=== PATIENT | female | born 1950 | race Caucasian/White ===

== ENCOUNTER 2017-10-04 03:44 | Outpatient (CLI) | payer MEDICARE, BC ==
[~2017-10-04 03:44] MED LIST: ATOR10TA PO
== END 2017-10-04 23:59 | disposition home or self-care (01) ==
LOC: DIABETIC 03:44
PROVIDERS: ATTEND Family Medicine
DX: E11.9 Type 2 diabetes mellitus without complications (principal); Z86.19 Personal history of other infectious and parasitic diseases
CPT/HCPCS: G0108

== ENCOUNTER 2018-04-04 02:50 | Outpatient (CLI) | payer MEDICARE, BC | END 2018-04-04 23:59 | disposition home or self-care (01) | LOC: DIABETIC 02:50 | PROVIDERS: ATTEND Family Medicine | DX: E11.9 Type 2 diabetes mellitus without complications (principal) | CPT/HCPCS: G0108 ==

== ENCOUNTER 2018-10-16 12:50 | Outpatient (CLI) | payer MEDICARE, BC | END 2018-10-16 23:59 | disposition home or self-care (01) | LOC: VAS 12:50 | PROVIDERS: ATTEND Family Medicine | DX: M71.21 Synovial cyst of popliteal space [Baker], right knee (principal); I87.2 Venous insufficiency (chronic) (peripheral); E11.9 Type 2 diabetes mellitus without complications; Z90.710 Acquired absence of both cervix and uterus | CPT/HCPCS: 93971 ==

== ENCOUNTER 2022-10-04 14:20 | Outpatient (CLI) | payer MEDICARE | END 2022-10-04 23:59 | disposition home or self-care (01) | LOC: RAD 14:20 | PROVIDERS: ATTEND Internal Medicine Cardiovascular Disease | DX: I08.8 Other rheumatic multiple valve diseases (principal); I10 Essential (primary) hypertension; E11.69 Type 2 diabetes mellitus with other specified complication | CPT/HCPCS: 93306 ==

== ENCOUNTER 2023-04-25 18:58 | Inpatient (IN) | payer MEDICARE ==
[~2023-04-25] VITALS: Ht 170.2 cm; Wt 83.8 kg
--- NOTE | 2023-04-25 22:41 | NUR ---
VAS AT BS
[2023-04-25] MEDS ORDERED: rivaroxaban 15mg tablet PO STA (23:26)
[2023-04-25] MEDS ORDERED: RIVA15TA PO ×2 (23:35)
[2023-04-25] MEDS ORDERED: iohexol 350MG/ML 100ml bottle IV ONE (23:37)
[2023-04-25 23:39] LABS: BASOPHILS # (AUTO) 0.2 X10'3 (0-0.2); EOSINOPHILS # (AUTO) 0.2 X10'3 (0-0.9); HEMATOCRIT 32.3 % (35.0-45.0); HEMOGLOBIN 10.9 g/dl (12.0-16.0); LYMPHOCYTES # (AUTO) 1.6 X10'3 (1.1-4.8); MEAN CORPUSCULAR HEMOGLOBIN 31.9 PG (27.0-31.0); MEAN CORPUSCULAR HGB CONC 33.7 g/dL (33.0-36.5); MEAN CORPUSCULAR VOLUME 94.5 FL (78-98); MEAN PLATELET VOLUME 7.5 FL (7.4-10.4); MONOCYTES % (AUTO) 12.1 % (2-12); NEUTROPHILS % (AUTO) 62.9 % (42-75); PLATELET COUNT 295 X10'3 (140-440); RED BLOOD COUNT 3.42 X10'6 (4.20-5.60); RED CELL DISTRIBUTION WIDTH 12.8 % (11.5-14.5)
[2023-04-25 23:53] LABS: ALANINE AMINOTRANSFERASE 31 U/L (12-78); ALBUMIN/GLOBULIN RATIO 0.9 (1.1-1.5); ALKALINE PHOSPHATASE 53 IU/L (46-116); ANION GAP 9 (8-16); ASPARTATE AMINO TRANSFERASE 23 U/L (10-37); BILIRUBIN,TOTAL 0.4 MG/DL (0.1-1.0); BLOOD UREA NITROGEN 30 MG/DL (7-18); BUN/CREATININE RATIO 24.2 (10.0-20.0); CALCIUM 8.5 MG/DL (8.5-10.1); CHLORIDE 108 MMOL/L (99-107); CREATININE 1.24 MG/DL (0.40-0.90); GLUCOSE 110 MG/DL (70-104); POTASSIUM 4.2 MMOL/L (3.5-5.1); SODIUM 144 MMOL/L (135-145); TOTAL CARBON DIOXIDE 26.7 MMOL/L (24-32); TOTAL PROTEIN 6.3 G/DL (6.4-8.2); eCRCL 39 ML/MIN; eGFR 42 ML/MIN
[2023-04-26] VITALS (9 sets, daily range): BP systolic 120–155; BP diastolic 52–82; PULSE 56–72; RESP 14–22; TEMP 96.9–98; O2SAT 62–97
[2023-04-26 00:01] LABS: PRO BRAIN NATRIURETIC PEPTIDE 1839 PG/ML (0-125)
--- NOTE | 2023-04-26 00:05 | NUR ---
Call to pharmacy regarding medication, stated they were bringing med down.
[2023-04-26] MEDS ORDERED: mag hydrox/Alum hydrox/simeth 30ml oral suspension PO PRN (02:10)
[2023-04-26] MEDS ORDERED: ondansetron 4mg rapidly disintigrating tab PO PRN (02:10)
[2023-04-26] MEDS ORDERED: diphenhydrAMINE 50 mg/ml inj IV PRN (02:10)
[2023-04-26] MEDS ORDERED: acetaminophen 325mg tablet PO PRN ×2 (02:10)
[2023-04-26] MEDS ORDERED: bisacodyl 10mg suppository rectal RC PRN (02:10)
[2023-04-26] MEDS ORDERED: ondansetron/PF 4mg/2ml inj IV PRN (02:10)
[2023-04-26] MEDS ORDERED: diphenhydrAMINE 25mg capsule PO PRN (02:10)
[2023-04-26] MEDS ORDERED: magnesium hydroxide 30ml (MOM) UD suspension PO PRN (02:10)
[2023-04-26] MEDS ORDERED: normal saline 1000ml 1,000 ML IV SCH (02:10)
[2023-04-26] MEDS ORDERED: acetaminophen 650mg rectal suppository RC PRN (02:10)
[2023-04-26] MEDS ORDERED: morphine 2 MG/ML inj. syringe IV PRN (02:10)
[2023-04-26 02:51] LABS: CREATINE KINASE 78 U/L (26-192); LIPASE 142 U/L (73-393); MAGNESIUM 2.2 MG/DL (1.5-2.4); PHOSPHORUS 4.3 MG/DL (2.3-4.5)
--- NOTE | 2023-04-26 03:20 | NUR ---
Patient in room PCU 3027. I have received report from Lilibeth ED RN and had the opportunity to ask questions and assume patient care.
[2023-04-26] MEDS: HYDROcodone/acetaminophen 5mg/325mg tablet PO PRN ×2 (04:13→12:53)
[2023-04-26] MEDS ORDERED: ATOR10TA70 PO (05:20)
[2023-04-26] MEDS ORDERED: LISI5TAB22 PO (05:20)
[2023-04-26] MEDS ORDERED: RIVA15TA PO (05:20)
--- NOTE | 2023-04-26 06:20 | NUR ---
Problems reprioritized. Patient report given, questions answered & plan of care reviewed with Darinel LEDESMA.
[2023-04-26 07:05] LABS: APTT 39 SECONDS (22-32); INR 1.2 INR; PROTHROMBIN TIME 12.6 SECONDS (9.0-12.0)
[2023-04-26] MEDS ORDERED: rivaroxaban 15mg tablet PO SCH (07:30)
[2023-04-26] MEDS: pantoprazole 40mg Tablet.DR PO SCH (08:00)
[2023-04-26] MEDS: docusate sod 100mg capsule PO SCH ×2 (08:00→20:02)
[2023-04-26] MEDS ORDERED: heparin 10,000 units/1 ML INJ IV PRN (10:20)
[2023-04-26] MEDS ORDERED: heparin 10,000 units/1 ML INJ IV ONE (10:20)
[2023-04-26] MEDS: heparin 25,000 UNIT/250ml bag 250 ML IV PRN (10:48)
--- NOTE | 2023-04-26 16:25 | NUR ---
DVT PTT >139. Heparin turned off.
--- NOTE | 2023-04-26 18:45 | NUR ---
Patient in room PCU 3027. I have received report from Bryce silva and had the opportunity to ask questions and assume patient care.
--- NOTE | 2023-04-26 19:10 | NUR ---
lAB JUST CALLED WITH A CRITICAL PTT OF >139. wILL FOLLOW PROTOCOL AND KEEP HEPARIN OFF FOR ANOTHER 2 HRS.
[2023-04-26] MEDS: lisinopril 5mg tablet PO SCH (20:07)
[2023-04-26] MEDS ORDERED: temazepam 15mg capsule PO PRN (21:00)
[2023-04-27] VITALS (12 sets, daily range): BP systolic 100–143; BP diastolic 41–82; PULSE 53–89; RESP 12–22; TEMP 97.4–99.1; O2SAT 90–97
[2023-04-27 03:39] LABS: BASOPHILS # (AUTO) 0.1 X10'3 (0-0.2); EOSINOPHILS # (AUTO) 0.2 X10'3 (0-0.9); MONOCYTES # (AUTO) 0.6 X10'3 (0-0.9); NEUTROPHILS # (AUTO) 4.1 X10'3 (1.8-7.7); NEUTROPHILS % (AUTO) 63.7 % (42-75); RED CELL DISTRIBUTION WIDTH 12.7 % (11.5-14.5)
[2023-04-27 03:40] LABS: BASOPHILS % (AUTO) 1.9 % (0-1); EOSINOPHILS % (AUTO) 3.5 % (0-6); HEMATOCRIT 33.6 % (35.0-45.0); HEMOGLOBIN 11.4 g/dl (12.0-16.0); LYMPHOCYTES # (AUTO) 1.4 X10'3 (1.1-4.8); LYMPHOCYTES % (AUTO) 21.5 % (21-51); MEAN CORPUSCULAR HEMOGLOBIN 31.8 PG (27.0-31.0); MEAN CORPUSCULAR HGB CONC 33.7 g/dL (33.0-36.5); MEAN CORPUSCULAR VOLUME 94.2 FL (78-98); MEAN PLATELET VOLUME 7.9 FL (7.4-10.4); MONOCYTES % (AUTO) 9.4 % (2-12); PLATELET COUNT 295 X10'3 (140-440); RED BLOOD COUNT 3.57 X10'6 (4.20-5.60); WHITE BLOOD COUNT 6.4 X10'3 (4.5-11.0)
[2023-04-27 03:51] LABS: ALANINE AMINOTRANSFERASE 25 U/L (12-78); ALBUMIN 2.8 G/DL (3.4-5.0); ALKALINE PHOSPHATASE 53 IU/L (46-116); ANION GAP 10 (8-16); ASPARTATE AMINO TRANSFERASE 20 U/L (10-37); BILIRUBIN,TOTAL 0.6 MG/DL (0.1-1.0); BLOOD UREA NITROGEN 16 MG/DL (7-18); BUN/CREATININE RATIO 16.7 (10.0-20.0); CALCIUM 8.4 MG/DL (8.5-10.1); CHLORIDE 106 MMOL/L (99-107); CHOL/HDL RATIO 2.6 (0.00-4.99); CHOLESTEROL 150 MG/DL (0-200); CREATININE 0.96 MG/DL (0.40-0.90); GLUCOSE 94 MG/DL (70-104); HDL CHOLESTEROL 57 MG/DL (35-60); LDL CHOLESTEROL 71 MG/DL (50-100); SODIUM 142 MMOL/L (135-145); TOTAL CARBON DIOXIDE 25.7 MMOL/L (24-32); TOTAL PROTEIN 5.7 G/DL (6.4-8.2); TRIGLYCERIDES 74 MG/DL (20-135); eCRCL 50 ML/MIN; eGFR 57 ML/MIN
--- NOTE | 2023-04-27 04:01 | NUR ---
Patients Ptt came back at 54 within therapeutic range. No change in rate. New PTT lab entered for 909.
--- NOTE | 2023-04-27 07:00 | NUR ---
Problems reprioritized. Patient report given, questions answered & plan of care reviewed with Katelynn LEDESMA..
[2023-04-27] MEDS: heparin 25,000 UNIT/250ml bag 250 ML IV PRN (09:09)
[2023-04-27] MEDS: atorvastatin 20mg tablet PO SCH (09:13)
[2023-04-27] MEDS: pantoprazole 40mg Tablet.DR PO SCH (09:13)
[2023-04-27] MEDS: docusate sod 100mg capsule PO SCH ×2 (09:13→20:00)
[2023-04-27] MEDS: HYDROcodone/acetaminophen 5mg/325mg tablet PO PRN (15:06)
--- NOTE | 2023-04-27 17:17 | NUR ---
Contacted Dr Casillas regarding advancing patients diet: Received orders for a HH diet patient also requesting Fiber, Received orders for Fiber. Contacted Pharmacy ordered Fiber.
--- NOTE | 2023-04-27 18:42 | NUR ---
Problems reprioritized. Patient report given, questions answered & plan of care reviewed with Ani LEDESMA.
[2023-04-27] MEDS: psyllium seed 5.8 gm packet (sugar-free) PO SCH (20:48)
[2023-04-27] MEDS: lisinopril 5mg tablet PO SCH (20:53)
[2023-04-28] MEDS: HYDROcodone/acetaminophen 5mg/325mg tablet PO PRN (01:39)
[2023-04-28 03:23] LABS: BASOPHILS % (AUTO) 0.4 % (0-1); EOSINOPHILS # (AUTO) 0.2 X10'3 (0-0.9); HEMATOCRIT 36.1 % (35.0-45.0); HEMOGLOBIN 12.1 g/dl (12.0-16.0); LYMPHOCYTES # (AUTO) 1.6 X10'3 (1.1-4.8); LYMPHOCYTES % (AUTO) 20.1 % (21-51); MEAN CORPUSCULAR HEMOGLOBIN 31.3 PG (27.0-31.0); MEAN CORPUSCULAR HGB CONC 33.4 g/dL (33.0-36.5); MEAN CORPUSCULAR VOLUME 93.6 FL (78-98); MEAN PLATELET VOLUME 7.8 FL (7.4-10.4); MONOCYTES # (AUTO) 0.8 X10'3 (0-0.9); MONOCYTES % (AUTO) 9.7 % (2-12); NEUTROPHILS # (AUTO) 5.3 X10'3 (1.8-7.7); NEUTROPHILS % (AUTO) 66.8 % (42-75); PLATELET COUNT 340 X10'3 (140-440); RED BLOOD COUNT 3.86 X10'6 (4.20-5.60); RED CELL DISTRIBUTION WIDTH 12.8 % (11.5-14.5); WHITE BLOOD COUNT 7.9 X10'3 (4.5-11.0)
[2023-04-28 03:43] LABS: ALANINE AMINOTRANSFERASE 23 U/L (12-78); ALBUMIN 2.9 G/DL (3.4-5.0); ALBUMIN/GLOBULIN RATIO 0.9 (1.1-1.5); ALKALINE PHOSPHATASE 51 IU/L (46-116); ANION GAP 8 (8-16); ASPARTATE AMINO TRANSFERASE 21 U/L (10-37); BILIRUBIN,TOTAL 0.5 MG/DL (0.1-1.0); BLOOD UREA NITROGEN 16 MG/DL (7-18); BUN/CREATININE RATIO 13.3 (10.0-20.0); CALCIUM 8.9 MG/DL (8.5-10.1); CHLORIDE 108 MMOL/L (99-107); GLUCOSE 113 MG/DL (70-104); POTASSIUM 4.2 MMOL/L (3.5-5.1); SODIUM 141 MMOL/L (135-145); TOTAL CARBON DIOXIDE 25.5 MMOL/L (24-32); TOTAL PROTEIN 6.1 G/DL (6.4-8.2); eCRCL 40 ML/MIN; eGFR 44 ML/MIN
[2023-04-28 06:00] VITALS: BP 119/52; PULSE 54; RESP 19; TEMP 97.7; O2SAT 100
--- NOTE | 2023-04-28 06:26 | NUR ---
Problems reprioritized. Patient report given, questions answered & plan of care reviewed with Katelynn LEDESMA. Addendum: 04/28/23 at 0626 by Ani Varner RN Amended: Links added.
[2023-04-28] MEDS: heparin 25,000 UNIT/250ml bag 250 ML IV PRN (06:40)
[2023-04-28] MEDS: docusate sod 100mg capsule PO SCH ×2 (08:35→20:53)
[2023-04-28] MEDS: pantoprazole 40mg Tablet.DR PO SCH (08:35)
[2023-04-28] MEDS: atorvastatin 20mg tablet PO SCH (08:36)
[2023-04-28 08:50] VITALS: RESP 16
[2023-04-28 10:00] VITALS: BP 100/44; PULSE 57; RESP 21; TEMP 98.5; O2SAT 96
--- NOTE | 2023-04-28 11:34 | NUR ---
Per Chaka the pharmacist Stop heparin gtt per orders then ok to give the Eliquis 1 hours later.
--- NOTE | 2023-04-28 11:35 | NUR ---
Heparin gtt stopped per MD orders
[2023-04-28] MEDS: apixaban 5mg tablet PO SCH ×2 (13:04→20:54)
[2023-04-28 15:00] VITALS: BP_SYST 105; BP_SYST 99; BP_DIAS 50; BP_DIAS 68; PULSE 81; PULSE 87; RESP 18; RESP 20; TEMP 97.6; TEMP 98.7; O2SAT 94; O2SAT 96
--- NOTE | 2023-04-28 15:21 | NUR ---
PAGER ID: [phone] MESSAGE: Katelynn ALBA [id number] Re: [place] [id number] feels like she has a bladder infection, patient is incontinent can we straight cath for sample?
[2023-04-28 16:43] LABS: BILIRUBIN,URINE NEGATIVE (Neg); CLARITY,URINE CLOUDY (Clear); COLOR,URINE YELLOW (Yellow); GLUCOSE, URINE NEGATIVE (Neg); KETONES,URINE NEGATIVE (Neg); LEUKOCYTE ESTERASE ,URINE LARGE (Neg); NITRITES, URINE NEGATIVE (Neg); OCCULT BLOOD,URINE SMALL (Neg); PH,URINE 8.5 (4.8-8.0); PROTEIN,URINE 30 mg/dl (Neg); UROBILINOGEN,URINE 0.2 E.U/dL (0.2-1.0)
[2023-04-28 16:44] LABS: UA COLLECTION TYPE STRAIGHT CATH
[2023-04-28 16:55] LABS: BACTERIA,URINE 4+ /HPF (Neg); MUCUS STRANDS NONE SEEN /LPF (Neg); SQUAMOUS EPITHELIAL CELL,UR NONE SEEN /LPF (FEW); WBC,URINE 50-100 /HPF (0-4)
[2023-04-28 16:56] LABS: TRIPLE PHOSPHATE CRYST 1+ /HPF (NEGATIVE)
[2023-04-28 16:58] LABS: URINE AMPHETAMINE SCREEN NEGATIVE (Neg); URINE BARBITUATE SCREEN NEGATIVE (Neg); URINE BENZODIAZEPINES SCREEN NEGATIVE (Neg); URINE CANNABINOID SCREEN NEGATIVE (Neg); URINE COCAINE SCREEN NEGATIVE (Neg); URINE METHADONE SCREEN NEGATIVE (Neg); URINE OPIATE SCREEN POSITIVE (Neg); URINE PHENCYCLIDINE SCREEN NEGATIVE (Neg)
--- NOTE | 2023-04-28 17:46 | NUR ---
PAGER ID: [phone] MESSAGE: Katelynn ALBA [id number] Re: Arabella [id number] U/A done shows 4+ UTI sent for cultures no antibiotics on patient Thank YOu
[2023-04-28] MEDS ORDERED: CefTRIAXone/D5W-Rocephin 1gm 50 ML IV ONE (17:50)
[2023-04-28 18:00] VITALS: BP 138/49; PULSE 62; RESP 20; TEMP 97.8; O2SAT 94
--- NOTE | 2023-04-28 18:16 | NUR ---
Problems reprioritized. Patient report given, questions answered & plan of care reviewed with Ani LEDESMA and Bryan GUTIERREZ.
--- NOTE | 2023-04-28 18:45 | NUR ---
Patient in room PCU 3027. I have received report from Katelynn LEDESMA and had the opportunity to ask questions and assume patient care.
[2023-04-28] MEDS: lisinopril 5mg tablet PO SCH (20:53)
[2023-04-28] MEDS: psyllium seed 5.8 gm packet (sugar-free) PO SCH (20:54)
[2023-04-28 22:00] VITALS: BP 128/75; PULSE 68; RESP 18; TEMP 97.4; O2SAT 95
[2023-04-29] VITALS (8 sets, daily range): BP systolic 96–150; BP diastolic 47–60; PULSE 54–71; RESP 13–19; TEMP 97.8–99; O2SAT 19–96
--- NOTE | 2023-04-29 05:08 | NUR ---
MATT documentation: I have reviewed and agree with all interventions, assessments performed and documented by Bryan GUTIERREZ. Addendum: 04/29/23 at 0509 by Ani Varner RN Amended: Links added.
--- NOTE | 2023-04-29 05:48 | NUR ---
MATT documentation: I have reviewed and agree with all interventions, assessments performed and documented by Bryan GUTIERREZ. Addendum: 04/29/23 at 0549 by Ani Varner RN Amended: Links added.
--- NOTE | 2023-04-29 06:23 | NUR ---
Problems reprioritized. Patient report given, questions answered & plan of care reviewed with Star RN.
--- NOTE | 2023-04-29 06:38 | NUR ---
Patient in room U 3018. I have received report from Ani and had the opportunity to ask questions and assume patient care. Addendum: 04/29/23 at 0639 by Star Ohara RN Amended: Links added.
[2023-04-29 07:29] LABS: BASOPHILS # (AUTO) 0.1 X10'3 (0-0.2); BASOPHILS % (AUTO) 0.9 % (0-1); EOSINOPHILS # (AUTO) 0.2 X10'3 (0-0.9); EOSINOPHILS % (AUTO) 2.9 % (0-6); HEMATOCRIT 34.8 % (35.0-45.0); HEMOGLOBIN 11.6 g/dl (12.0-16.0); LYMPHOCYTES # (AUTO) 0.9 X10'3 (1.1-4.8); LYMPHOCYTES % (AUTO) 11.7 % (21-51); MEAN CORPUSCULAR HEMOGLOBIN 31.3 PG (27.0-31.0); MEAN CORPUSCULAR HGB CONC 33.3 g/dL (33.0-36.5); MEAN CORPUSCULAR VOLUME 93.9 FL (78-98); MEAN PLATELET VOLUME 8.1 FL (7.4-10.4); MONOCYTES # (AUTO) 0.7 X10'3 (0-0.9); MONOCYTES % (AUTO) 8.7 % (2-12); NEUTROPHILS # (AUTO) 5.9 X10'3 (1.8-7.7); NEUTROPHILS % (AUTO) 75.8 % (42-75); PLATELET COUNT 332 X10'3 (140-440); RED BLOOD COUNT 3.71 X10'6 (4.20-5.60); RED CELL DISTRIBUTION WIDTH 12.6 % (11.5-14.5); WHITE BLOOD COUNT 7.8 X10'3 (4.5-11.0)
[2023-04-29] MEDS: docusate sod 100mg capsule PO SCH ×2 (07:33→20:23)
[2023-04-29] MEDS: pantoprazole 40mg Tablet.DR PO SCH (07:33)
[2023-04-29] MEDS: atorvastatin 20mg tablet PO SCH (07:33)
[2023-04-29] MEDS: CefTRIAXone/D5W-Rocephin 1gm 50 ML IV SCH (07:34)
[2023-04-29] MEDS: apixaban 5mg tablet PO SCH ×2 (07:34→20:23)
[2023-04-29 07:46] LABS: ALANINE AMINOTRANSFERASE 22 U/L (12-78); ALBUMIN 2.8 G/DL (3.4-5.0); ALBUMIN/GLOBULIN RATIO 0.9 (1.1-1.5); ALKALINE PHOSPHATASE 56 IU/L (46-116); ANION GAP 6 (8-16); ASPARTATE AMINO TRANSFERASE 25 U/L (10-37); BILIRUBIN,TOTAL 0.3 MG/DL (0.1-1.0); BLOOD UREA NITROGEN 18 MG/DL (7-18); BUN/CREATININE RATIO 14.8 (10.0-20.0); CALCIUM 8.6 MG/DL (8.5-10.1); CHLORIDE 108 MMOL/L (99-107); CREATININE 1.22 MG/DL (0.40-0.90); GLUCOSE 123 MG/DL (70-104); POTASSIUM 3.9 MMOL/L (3.5-5.1); SODIUM 140 MMOL/L (135-145); TOTAL CARBON DIOXIDE 26.1 MMOL/L (24-32); TOTAL PROTEIN 5.9 G/DL (6.4-8.2); eCRCL 39 ML/MIN; eGFR 43 ML/MIN
--- NOTE | 2023-04-29 18:18 | NUR ---
Problems reprioritized. Patient report given, questions answered & plan of care reviewed with Candi. Addendum: 04/29/23 at 1818 by Star Ohara RN Amended: Links added.
[2023-04-29] MEDS: lisinopril 5mg tablet PO SCH (20:23)
[2023-04-29] MEDS: psyllium seed 5.8 gm packet (sugar-free) PO SCH (21:01)
[2023-04-30 02:00] VITALS: BP 108/52; PULSE 72; RESP 18; TEMP 98.2; O2SAT 95
--- NOTE | 2023-04-30 03:02 | NUR ---
[employer] documentation: I have reviewed and agree with assessment performed and documented by BLAINE Manning
--- NOTE | 2023-04-30 06:15 | NUR ---
Patient in room U 3016. I have received report from Candi and had the opportunity to ask questions and assume patient care. Addendum: 04/30/23 at 0615 by Star Ohara RN Amended: Links added.
[2023-04-30 07:12] LABS: BASOPHILS # (AUTO) 0.1 X10'3 (0-0.2); EOSINOPHILS # (AUTO) 0.2 X10'3 (0-0.9); EOSINOPHILS % (AUTO) 3.2 % (0-6); HEMATOCRIT 33.7 % (35.0-45.0); HEMOGLOBIN 11.1 g/dl (12.0-16.0); LYMPHOCYTES # (AUTO) 1.3 X10'3 (1.1-4.8); LYMPHOCYTES % (AUTO) 17.7 % (21-51); MEAN CORPUSCULAR HEMOGLOBIN 31.2 PG (27.0-31.0); MEAN CORPUSCULAR VOLUME 94.4 FL (78-98); MEAN PLATELET VOLUME 7.7 FL (7.4-10.4); MONOCYTES # (AUTO) 0.7 X10'3 (0-0.9); MONOCYTES % (AUTO) 9.9 % (2-12); NEUTROPHILS % (AUTO) 68.2 % (42-75); PLATELET COUNT 346 X10'3 (140-440); RED BLOOD COUNT 3.57 X10'6 (4.20-5.60); WHITE BLOOD COUNT 7.3 X10'3 (4.5-11.0)
[2023-04-30 07:21] VITALS: BP 122/58; PULSE 66; RESP 19; TEMP 98.4; O2SAT 95
[2023-04-30 07:34] LABS: ALANINE AMINOTRANSFERASE 34 U/L (12-78); ALBUMIN 2.7 G/DL (3.4-5.0); ALBUMIN/GLOBULIN RATIO 0.9 (1.1-1.5); ALKALINE PHOSPHATASE 48 IU/L (46-116); ANION GAP 7 (8-16); ASPARTATE AMINO TRANSFERASE 33 U/L (10-37); BILIRUBIN,TOTAL 0.2 MG/DL (0.1-1.0); BLOOD UREA NITROGEN 21 MG/DL (7-18); BUN/CREATININE RATIO 16.8 (10.0-20.0); CALCIUM 8.5 MG/DL (8.5-10.1); CHLORIDE 107 MMOL/L (99-107); CREATININE 1.25 MG/DL (0.40-0.90); GLUCOSE 111 MG/DL (70-104); POTASSIUM 4.2 MMOL/L (3.5-5.1); SODIUM 142 MMOL/L (135-145); TOTAL CARBON DIOXIDE 28.2 MMOL/L (24-32); TOTAL PROTEIN 5.6 G/DL (6.4-8.2); eCRCL 38 ML/MIN; eGFR 42 ML/MIN
[2023-04-30] MEDS: apixaban 5mg tablet PO SCH (07:34)
[2023-04-30] MEDS: pantoprazole 40mg Tablet.DR PO SCH (07:34)
[2023-04-30] MEDS: docusate sod 100mg capsule PO SCH (07:34)
[2023-04-30] MEDS: atorvastatin 20mg tablet PO SCH (07:34)
[2023-04-30] MEDS: CefTRIAXone/D5W-Rocephin 1gm 50 ML IV SCH (07:35)
[2023-04-30 08:39] VITALS: RESP 19; O2SAT 95
[2023-04-30 12:22] VITALS: BP 129/62; PULSE 64; RESP 17; TEMP 98.5; O2SAT 95
--- NOTE | 2023-04-30 13:07 | NUR ---
IV/tele off, report called to Carlyle Saleh
== END 2023-04-30 13:09 | DRG 299 ==
LOC: ER 19:07 → ED HOLD 04-26 02:13 → EDBEDREQ 04-26 03:05 → PCU 3S 04-26 03:45
PROVIDERS: ADMIT Family Medicine; ATTEND Family Medicine
PROC: B32T1ZZ Computerized Tomography (CT Scan) of Left Pulmonary Artery using Low Osmolar Contrast (ICD-10-PCS; principal; 2023-04-26)
PROC: B3201ZZ Computerized Tomography (CT Scan) of Thoracic Aorta using Low Osmolar Contrast (ICD-10-PCS; 2023-04-26)
PROC: B32S1ZZ Computerized Tomography (CT Scan) of Right Pulmonary Artery using Low Osmolar Contrast (ICD-10-PCS; 2023-04-26)
DX: I82.432 Acute embolism and thrombosis of left popliteal vein (principal); I26.92 Saddle embolus of pulmonary artery without acute cor pulmonale; N17.9 Acute kidney failure, unspecified; I13.0 Hypertensive heart and chronic kidney disease with heart failure and stage 1 through stage 4 chronic kidney disease, or unspecified chronic kidney disease; N39.0 Urinary tract infection, site not specified; I82.412 Acute embolism and thrombosis of left femoral vein; I82.512 Chronic embolism and thrombosis of left femoral vein; I82.532 Chronic embolism and thrombosis of left popliteal vein; E86.1 Hypovolemia; F03.A0 Unspecified dementia, mild, without behavioral disturbance, psychotic disturbance, mood disturbance, and anxiety; Z60.2 Problems related to living alone; F10.21 Alcohol dependence, in remission; B96.89 Other specified bacterial agents as the cause of diseases classified elsewhere; R26.9 Unspecified abnormalities of gait and mobility; D64.9 Anemia, unspecified; E11.22 Type 2 diabetes mellitus with diabetic chronic kidney disease; N18.30 Chronic kidney disease, stage 3 unspecified; E78.5 Hyperlipidemia, unspecified; I50.9 Heart failure, unspecified; K70.9 Alcoholic liver disease, unspecified; K80.20 Calculus of gallbladder without cholecystitis without obstruction; Z79.01 Long term (current) use of anticoagulants; Z79.899 Other long term (current) drug therapy; Z87.891 Personal history of nicotine dependence; Z86.73 Personal history of transient ischemic attack (TIA), and cerebral infarction without residual deficits
CPT/HCPCS: 36415; 71275; 80053; 80061; 80305; 81001; 82550; 83036; 83690; 83735; 83880; 84100; 84484; 85025; 85379; 85610; 85730; 87077; 87088; 87186; 93005; 93306; 93971; 97161; 97530; 97535; 99285; A6213; A6250; A6446; A6449; C1758; G0378; J0696; J1644; J7030; Q9967

== ENCOUNTER 2023-06-27 08:36 | Outpatient (CLI) | payer MEDICARE ==
[2023-06-27] VITALS (10 sets, daily range): BP systolic 104–134; BP diastolic 46–67; PULSE 58–85; RESP 12–16; O2SAT 96–100
[~2023-06-27] VITALS: Ht 152.4 cm; Wt 87.1 kg
[~2023-06-27 08:36] MED LIST changes: -ATOR10TA PO; +ATOR10TA70 PO; +LISI5TAB22 PO; +RIVA15TA PO
[2023-06-27] MEDS ORDERED: regadenoson 0.4mg/5ml syringe IV ONE (09:50)
[2023-06-27] MEDS ORDERED: aminophylline 250mg/10ml inj. IV PRN (09:55)
[2023-06-27] MEDS ORDERED: nitroGLYCERIN 0.4mg SUBLingual tab SL PRN (09:55)
== END 2023-06-27 23:59 | disposition home or self-care (01) ==
LOC: RAD 08:36
PROVIDERS: ATTEND Internal Medicine Cardiovascular Disease
DX: R06.02 Shortness of breath (principal); R53.82 Chronic fatigue, unspecified; R94.31 Abnormal electrocardiogram [ECG] [EKG]
CPT/HCPCS: 78452; 93017; A9500; J2785

== ENCOUNTER → 2023-07-28 | Outpatient (CLI) | payer MEDICARE | END | disposition home or self-care (01) | LOC: RAD 12:09 | PROVIDERS: ATTEND Physician Assistant | DX: R05.3 Chronic cough (principal) | CPT/HCPCS: 71046 ==